=== PATIENT | female | born 1970 | race Caucasian/White ===

== ENCOUNTER → 2021-03-31 | Outpatient (CLI) | payer BC, OTHER ==
[~2021-03-31] MED LIST: CELEXA40 MG PO; FLOMAX0.4 MG PO; OMEPRAZOLE 20 M20 M1 PO
== END ==
LOC: M.LAB 16:07
PROVIDERS: ATTEND Surgery
DX: Z01.812 Encounter for preprocedural laboratory examination (principal); Z20.822 Contact with and (suspected) exposure to COVID-19

== ENCOUNTER → 2021-04-01 | Day surgery (SDC) | payer BC, OTHER ==
--- NOTE | ~2021-04-01 | OP ---
[facility] [address] [place] [address] OPERATIVE REPORT Name: BHAVIK ARTHUR Room: [facility].#: [id number] Admission: 04/01/21 Attend Phys: Larry Palomino Discharge: Date of : 72 Report #: [id number] THIS REPORT FOR: cc: Karla Juan MD,Karla Palomino,aLrry Au MD ~ DATE OF SURGERY: 04/01/2021 PREOPERATIVE DIAGNOSIS: Bilateral inguinal hernias. POSTOPERATIVE DIAGNOSIS: Bilateral inguinal hernias. OPERATION: Laparoscopic repair of bilateral inguinal hernias with mesh. SURGEON: Larry Palomino MD ANESTHESIA: General. ESTIMATED BLOOD LOSS: Minimal. SPECIMENS: None. DESCRIPTION OF PROCEDURE: After informed consent was obtained, the patient was brought to the operating room and placed supine. SCDs were placed and working, preoperative antibiotics were administered, general anesthesia was induced. The abdomen was prepped and draped in the usual sterile fashion. A 10 mm incision was made below the umbilicus. Fascia was incised and then, a trocar was placed. Pneumoperitoneum was established. Right and left lower quadrant 5 mm trocars were placed. The peritoneum at the right ASIS was scored. Peritoneum was then incised medially and reflected inferiorly. I identified the iliac vessels. I then identified the pubic bone. The round ligament was identified. She had an indirect hernia. This was fully reduced. I then inserted a medium Bard 3DMax mesh. It was tacked to Antonio's ligament with 2 absorbable tacks. I then reapproximated the peritoneum with a tacker as well. The mesh was 100% covered. Incision was made in the left peritoneum at the left ASIS. Cautery was used to incise it medially and reflected the peritoneum inferiorly. The epigastric vessels and iliac vessels were identified. Antonio's ligament was identified. The patient had an indirect inguinal hernia on this side as well. It was fully reduced. I then inserted a medium Bard 3DMax mesh. It was tacked to Antonio's ligament with 2 absorbable tacks. I again reapproximated the peritoneum with a tacker. There was good coverage of the mesh. The ports were then removed under direct vision. The fascia was closed with a [id number] 0 Vicryl. Skin was closed with 4-0 Monocryl. Incisions were dressed with Steri-Strips. COMPLICATIONS: [place] [id number] OPERATIVE REPORT Name: BHAVIK ARTHUR HEIDI Room: [facility]#: [id number] Admission: 04/01/21 Attend Phys: Larry Palomino Discharge: Date of : 72 Report #: [id number] DISPOSITION: The patient was taken to recovery in satisfactory condition. By: [id number] Palomino MD /seng
[2021-04-01 12:15] LABS: HEMATOCRIT 47.3 % (37.0-47.0); HEMOGLOBIN 15.8 gm/dL (12.0-15.0); MCH 30.7 pg (26.0-34.0); MCHC 33.3 g/dL (28.0-37.0); MCV 92.2 fL (80.0-100.0); MPV 6.8 fl. (7.2-11.1); RBC 5.13 mil/uL (4.20-5.00)
[2021-04-01 12:23] LABS: CALCIUM 8.9 mg/dL (8.5-10.1); CREATININE 0.8 mg/dL (0.6-1.3); POTASSIUM 3.9 mmol/L (3.5-5.1)
== END | disposition home or self-care (01) ==
LOC: M.SUR
PROVIDERS: Anesthesiology; ATTEND Surgery
DX: K40.20 Bilateral inguinal hernia, without obstruction or gangrene, not specified as recurrent (principal); F32.9 Major depressive disorder, single episode, unspecified; F41.9 Anxiety disorder, unspecified; K21.9 Gastro-esophageal reflux disease without esophagitis; Z79.899 Other long term (current) drug therapy